=== PATIENT | female | born 1970 | race Caucasian/White ===

== ENCOUNTER 2016-09-09 03:56 | Emergency (ER) | payer MEDICAID ==
[2016-09-09] MEDS ORDERED: SODIUM CHLORIDE 0.9% 1,000 ML IV ONE (04:28)
[2016-09-09] MEDS ORDERED: ONDANSETRON 4 MG/2 ML VIAL IVP STA (04:28)
[2016-09-09] MEDS ORDERED: HYDROmorphone 1 MG/ML SYRINGE IVP STA (04:28)
--- NOTE | 2016-09-09 04:31 | ED Physician Documentation ---
PD HPI ABD PAIN - Stated complaint Stated Complaint: BACK PX,SYNCOPE - Chief complaint Chief Complaint: Back Pain - History obtained from History obtained from: Patient, Family - History of Present Illness Timing - onset: How many days ago (2) Timing - duration: Days (2) Timing - details: Gradual onset, Still present Quality: Sharp, Pain Location: RUQ, Suprapubic Radiation: Left flank, Right flank Improved by: Laying still Worsened by: Position, Palpation Associated symptoms: Nausea, Vomiting Similar symptoms before: Diagnosis (pyelonephritis) Recently seen: Not recently seen - Additional information Additional information: 46 y/o female with a prior history of infected kidney stone has had pain in the right flank and abdomen for the past 2 days. Review of Systems Constitutional: reports: Fever Eyes: denies: Decreased vision Ears: denies: Ear pain Nose: denies: Congestion Throat: denies: Sore throat Cardiac: denies: Chest pain / pressure, Palpitations Respiratory: reports: Cough. denies: Dyspnea GI: reports: Abdominal Pain, Nausea, Vomiting. denies: Constipation, Diarrhea : reports: Vaginal bleeding. denies: Dysuria Skin: denies: Rash Musculoskeletal: reports: Back pain. 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 - Present Medications Home Medications: Ambulatory Orders Medication Instructions Recorded Confirmed Ciprofloxacin HCl [Cipro] 500 mg PO BID #14 tablet 09/09/16 HYDROcod/ACETAM 5/325 [[place] 5/325] 1 - 2 ea PO Q6H PRN #15 tablet 09/09/16 Ondansetron Odt [Zofran] 4 mg TL Q6H PRN #10 tablet 09/09/16 - Allergies Allergies/Adverse Reactions: Allergies Allergy/AdvReac Type Severity Reaction Status Date / Time iodine Allergy Unknown Verified 09/09/16 04:05 promethazine HCl * Allergy Unknown Verified 09/09/16 04:05 [From Phenergan] - Social History Does the pt smoke?: Yes Smoking Status: Current every day smoker Does the pt drink ETOH?: No Does the pt have substance abuse?: No - Immunizations Immunizations are current?: Yes PD ED PE NORMAL - Vitals Vital signs reviewed: Yes (tachypneic) - General General: Well developed/nourished, Other (The patient is moaning in pain and hyperventilating. ) - HEENT HEENT: Atraumatic, PERRL - Neck Neck: Supple, no meningeal sign - Cardiac Cardiac: RRR, No murmur - Respiratory Respiratory: No respiratory distress, Clear bilaterally - Abdomen Abdomen: Soft, Other (mild generalized tenderness without reproducibility or specificity except with bimaual palpation of the right kidney ) - Back Back: No spinal TTP, Other (Right CVA tenderness ) - Derm Derm: Normal color, Warm and dry, No rash - Extremities Extremities: No deformity, No edema - Neuro Neuro: No motor deficit, No sensory deficit - Psych Psych: Normal mood, Normal affect Results - Vitals Vitals: Vital Signs - 24 hr 09/09/16 09/09/16 09/09/16 04:00 05:31 06:09 Temperature 36.0 C L Heart Rate 67 77 74 Respiratory 26 H 16 16 Rate Blood Pressure 119/78 138/69 H 142/77 H O2 Saturation 100 97 100 Oxygen O2 Source Room air - Labs Labs: Laboratory Tests 09/09/16 09/09/16 09/09/16 04:10 05:32 05:32 WBC 10.3 RBC 4.28 Hgb 13.4 Hct 39.4 MCV 92.1 MCH 31.2 H MCHC 33.9 RDW 14.1 Plt Count 224 MPV 8.7 Neut # 7.6 H Lymph # 1.8 [place] # 0.7 Eos # 0.1 Baso # 0.1 Absolute Nucleated RBC 0.00 Nucleated RBCs 0.0 Sodium 139 Potassium 3.9 Chloride 105 Carbon Dioxide 26 Anion Gap 8.0 BUN 13 Creatinine 0.8 Estimated GFR (MDRD) 78 L Glucose 107 H Calcium 8.9 Total Bilirubin 0.4 AST 15 ALT 14 Alkaline Phosphatase 51 Total Protein 6.6 L Albumin 3.7 Globulin 2.9 Albumin/Globulin Ratio 1.3 Lipase 35 Urine Color YELLOW Urine Clarity CLEAR Urine pH 7.5 Ur Specific [place] 1.015 Urine Protein TRACE Urine Glucose (UA) NEGATIVE Urine Ketones NEGATIVE Urine Occult Blood LARGE H Urine Nitrite POSITIVE H Urine Bilirubin NEGATIVE Urine Urobilinogen 0.2 (NORMAL) Ur Leukocyte Esterase NEGATIVE Urine RBC 6-10 H Urine WBC 11-25 H Ur Squamous Epith Cells RARE Squamous Urine Bacteria Many H Ur Microscopic Review INDICATED Urine Culture Comments INDICATED - Rads (name of study) CT abdomen and pelvis without Radiology: Prelim report reviewed (Impression: 1. No ureteral stone or obstructive uropathy seen bilaterally. 2. There two nonobstructing left renal stones measuring up to 4 mm. 3. No evidence of appendicitis. There may be a small normal appendix.), EMP read indepedently, See rad report Procedures - Bedside sono Bedside sono by EMP: with the use of bedside ultrasound both kidneys are imaged without hydro and both are sonographically tender the right much more so than the left. - IVC sono (time) 0420 Bedside IVC sono: IVC measures (cm) (1.02), IVC collapsed c insp (cm) (complete) , Dehydration PD MEDICAL DECISION MAKING - ED course Complexity details: reviewed old records, reviewed results, re-evaluated patient , considered differential, d/w patient, d/w family ED course: 46 y/o female with right flank pain and vaginal bleeding s/p hyster has had a fever and nausea. She arrives to the ED in pain and with nausea and she is miserable and barely able to give history. She is given pain medication and fluids with zofran and she is a different person, able to give adequate history and thankful for feeling better. Her exam is consistent with pyelo and her history is consistent and I felt it important to rule out stone in this case as she has had infected stone with sepsis. She is given rocephin IV and we will place her on cipro give pain medications and anti-emetic. Departure - Departure Disposition: 01 Home, Self Care Clinical Impression: Pyelonephritis Instructions: ED Kidney Infec Female Follow-Up: [facility] [Provider Group] Prescriptions: Ciprofloxacin HCl [Cipro] 500 mg PO BID #14 tablet HYDROcod/ACETAM 5/325 [[place] 5/325] 1 - 2 ea PO Q6H PRN #15 tablet PRN Reason: Pain Ondansetron Odt [Zofran] 4 mg TL Q6H PRN #10 tablet PRN Reason: Nausea / Vomiting Forms: Activity restrictions
[2016-09-09 04:41] LABS: BILIRUBIN,URINE NEGATIVE (NEGATIVE); PH,URINE 7.5 PH (5.0-7.5)
[2016-09-09 04:46] LABS: UA w/ MICROSCOPIC CHARGE YES
[2016-09-09 04:52] LABS: UR CULTURE IF IND INDICATED
[2016-09-09] MEDS ORDERED: cefTRIAXone 1 GM in SODIUM CHLORIDE 0.9% MINIBAG 100 ML IV STA (05:03)
[2016-09-09] MEDS ORDERED: HYDROmorphone 1 MG/ML SYRINGE ONE (05:07)
[2016-09-09] MEDS ORDERED: ONDANSETRON 4 MG/2 ML VIAL ONE (05:07)
[2016-09-09] MEDS ORDERED: cefTRIAXone 1 GM VIAL ONE (05:25)
--- NOTE | 2016-09-09 05:41 | CT Preliminary Report ---
Exam: CT Abdomen/Pelvis W/O IMPRESSION: 1. No ureteral stone or obstructive uropathy seen bilaterally. 2. There are 2 nonobstructing left renal stones measuring up to 4 mm. 3. No evidence of appendicitis. There may be a small normal appendix. [facility] SITE ID: [id number]
--- NOTE | 2016-09-09 05:44 | CT Report ---
EXAM: CT ABDOMEN AND PELVIS (CT KUB) EXAM DATE: 09/09/2016 05:26 AM. CLINICAL HISTORY: Right flank and abdominal pain . COMPARISONS: 01/08/2016. TECHNIQUE: Routine axial helical CT imaging was performed through the abdomen and pelvis without IV c ontrast. Reconstructions: Coronal and sagittal. In accordance with CT protocol optimization, one or more of the following dose reduction techniques w ere utilized for this exam: automated exposure control, adjustment of mA and/or KV based on patient s ize, or use of iterative reconstructive technique. FINDINGS: Lung Bases: Minimal bibasilar atelectasis. Right Kidney/Ureter: No stones, hydronephrosis, or hydroureter. No perinephric fat stranding. Left Kidney/Ureter: There are 2 nonobstructing left renal stones measuring up to [address] one or obstructive uropathy seen. Other Solid Organs: Noncontrast images of the solid organs are grossly unremarkable. Gallbladder/Bile Ducts: Status post cholecystectomy. Peritoneal Cavity: No bowel obstruction seen. No diverticulitis. No free air or free fluid. No lympha denopathy. No definite evidence of appendicitis. There may be a small normal appendix. Pelvic Organs: Uterus is not seen. Visualized pelvic organs are otherwise unremarkable. Vasculature: Mild atherosclerosis. No aortic aneurysm. Other: Implanted stimulator device in the right buttock with wires extending to the sacrum. IMPRESSION: 1. No ureteral stone or obstructive uropathy seen bilaterally. 2. There are 2 nonobstructing left renal stones measuring up to 4 mm. 3. No evidence of appendicitis. There may be a small normal appendix. [facility] Referring Provider Line: [phone] SITE ID: [id number]
[2016-09-09 05:49] LABS: BASOPHILS # (AUTO) 0.1 10^3/uL (0.0-0.1); BASOPHILS % (AUTO) 0.9 %; EOSINOPHILS # (AUTO) 0.1 10^3/uL (0.0-0.7); EOSINOPHILS % (AUTO) 1.2 %; HCT - HEMATOCRIT 39.4 % (37.0-47.0); HGB - HEMOGLOBIN 13.4 g/dL (12.0-16.0); LYMPHOCYTES # (AUTO) 1.8 10^3/uL (1.5-3.5); LYMPHOCYTES % (AUTO) 17.7 %; MEAN CORPUSCULAR HEMOGLOBIN 31.2 pg (27.0-31.0); MEAN CORPUSCULAR HGB CONC 33.9 g/dL (32.0-36.0); MEAN CORPUSCULAR VOLUME 92.1 fL (81.0-99.0); MEAN PLATELET VOLUME 8.7 fL (7.9-10.8); MONOCYTES # (AUTO) 0.7 10^3/uL (0.0-1.0); MONOCYTES % (AUTO) 6.9 %; NEUTROPHILS # (AUTO) 7.6 10^3/uL (1.5-6.6); NEUTROPHILS % (AUTO) 73.3 %; RED BLOOD COUNT 4.28 10^6/uL (4.20-5.40); RED CELL DISTRIBUTION WIDTH 14.1 % (12.0-15.0); UNCORRECTED WHITE BLOOD COUNT 10.3 x10^3/uL; WHITE BLOOD COUNT 10.3 x10^3/uL (4.8-10.8)
[2016-09-09 05:50] LABS: ALBUMIN/GLOBULIN RATIO 1.3 (1.0-2.2); BILIRUBIN,TOTAL 0.4 mg/dL (0.2-1.0); CALCIUM 8.9 mg/dL (8.5-10.3); CREATININE 0.8 mg/dL (0.4-1.0); POTASSIUM 3.9 mmol/L (3.5-5.0); TOTAL PROTEIN 6.6 g/dL (6.7-8.2)
[2016-09-09 07:03] VITALS: BP 133/70
== END 2016-09-09 07:01 | disposition home or self-care (01) ==
LOC: ED 03:56
DX: N12 Tubulo-interstitial nephritis, not specified as acute or chronic (principal); E86.0 Dehydration; R11.2 Nausea with vomiting, unspecified; N93.9 Abnormal uterine and vaginal bleeding, unspecified; Z90.710 Acquired absence of both cervix and uterus; F17.200 Nicotine dependence, unspecified, uncomplicated
CPT/HCPCS: 36415; 74176; 80053; 81001; 83690; 85025; 87077; 87086; 87181; 96361; 96365; 96375; 99284; J1170; 81003; 87040

== ENCOUNTER 2016-09-14 22:57 | Emergency (ER) | payer MEDICAID ==
--- NOTE | 2016-09-14 23:23 | ED Physician Documentation ---
PD HPI ABD PAIN - Stated complaint Stated Complaint: FAINTING - Chief complaint Chief Complaint: General - History obtained from History obtained from: Patient - History of Present Illness Timing - onset: How many days ago (4-5) Timing - duration: Days (4-5 days of back pain, worse with movement, more on the left. Feeling like kidney pain she has had in the past, with infections and stones. Remote history of musculoskeletal back pain with surgery of cysts/ tumors removal and had back stimulator for the pain, but has not worked for 6 years. Has not had that back pain for 6 years. Had some dysuria few days ago. Seen in ED and had positive UA showing UTI. Rx with pain meds and Cipro and did not seem too sick. Patient says somewhat better for a day, then with pain again. She still has one more day of abx.) Timing - details: Gradual onset, Still present, Waxing and waning Quality: Aching, Sharp, Pain Location: LLQ, Other (mostly left flank) Radiation: Left flank, Right flank Improved by: Laying still, Position Worsened by: Moving, Position. No: Breathing, Palpation Associated symptoms: Nausea, Dysuria (improved since on abx.). No: Fever, Vomiting, Diarrhea Similar symptoms before: Diagnosis (kidney stones and pyelonephritis in the past.) Recently seen: Emergency Dept Review of Systems Constitutional: denies: Fever, Chills Nose: denies: Rhinorrhea / runny nose, Congestion Throat: denies: Sore throat Respiratory: denies: Cough GI: reports: Nausea. denies: Vomiting, Diarrhea : reports: Dysuria, Frequency. denies: Discharge Skin: denies: Rash, Lesions Musculoskeletal: reports: Back pain. denies: Neck pain, Extremity swelling Neurologic: reports: Numbness (intermittent when breathing quickly due to pain/ anxious.), Syncope (she says she has had 2 fainting episodes when the pain was hurting. She says she got anxious and felt short of breath, then developed tingling in arms/feet/face, felt sweaty and then fainted. Awoke promptly.). 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 - Present Medications Home Medications: Ambulatory Orders Medication Instructions Recorded Confirmed Ciprofloxacin HCl [Cipro] 500 mg PO BID #14 tablet 09/09/16 09/14/16 HYDROcod/ACETAM 5/325 [[place] 5/325] 1 - 2 ea PO Q6H PRN #15 tablet 09/09/16 Ondansetron Odt [Zofran] 4 mg TL Q6H PRN #10 tablet 09/09/16 09/14/16 Docusate Sodium [Dss] 250 mg PO DAILY #20 capsule 09/15/16 Hydrocodone/Acetaminophen [[place] 1 each PO Q6H PRN #20 tablet 09/15/16 5-325 Tablet] Naproxen 375 mg PO BID #20 tablet 09/15/16 - Allergies Allergies/Adverse Reactions: Allergies Allergy/AdvReac Type Severity Reaction Status Date / Time iodine Allergy Unknown Verified 09/09/16 04:05 promethazine HCl * Allergy Unknown Verified 09/09/16 04:05 [From Phenergan] - Living Situation Living Situation: reports: With spouse/s.o. Living Arrangement: reports: At home - Social History Does the pt smoke?: Yes Smoking Status: Current every day smoker Does the pt drink ETOH?: No Does the pt have substance abuse?: No - Immunizations Immunizations are current?: Yes PD ED PE NORMAL - Vitals Vital signs reviewed: Yes - General General: Alert and oriented X 3, Well developed/nourished, Other (seems in pain and is breathing quick/shallow, feeling some tingling in hands on initial exam. ) - HEENT HEENT: Atraumatic, PERRL, Pharynx benign - Neck Neck: Supple, no meningeal sign, No adenopathy - Cardiac Cardiac: RRR, No murmur - Respiratory Respiratory: Clear bilaterally - Abdomen Abdomen: Normal bowel sounds, Soft, Non tender, Non distended - Female Female : Deferred - Rectal Rectal: Deferred - Back Back: No spinal TTP, Other (muscular tenderness in upper lumbar area, No rash nor sores. ) - Derm Derm: Normal color, No rash - Extremities Extremities: Normal ROM s pain, No edema, No calf tenderness / cord - Neuro Neuro: Alert and oriented X 3, No motor deficit, Normal speech - Psych Psych: No: Normal affect (anxious, seems in pain) Results - Vitals Vitals: Vital Signs - 24 hr 09/14/16 09/15/16 09/15/16 23:03 00:31 01:32 Temperature 36.7 C 36.1 C L Heart Rate 103 H 77 99 Respiratory 20 18 15 Rate Blood Pressure 173/104 H 125/63 148/84 H O2 Saturation 100 96 99 09/15/16 09/15/16 02:09 02:17 Temperature 36.5 C Heart Rate 84 82 Respiratory 16 18 Rate Blood Pressure 140/82 H 140/92 H O2 Saturation 98 98 Oxygen O2 Source Room air - Labs Labs: Laboratory Tests 09/14/16 09/14/16 09/14/16 00:10 00:10 00:10 WBC 9.3 RBC 4.30 Hgb 13.3 Hct 39.6 MCV 92.0 MCH 30.9 MCHC 33.6 RDW 14.5 Plt Count 257 MPV 8.8 Neut # 5.6 Lymph # 2.7 [place] # 0.6 Eos # 0.2 Baso # 0.2 H Absolute Nucleated RBC 0.00 Nucleated RBCs 0.0 Sodium 139 Potassium 3.4 L Chloride 106 Carbon Dioxide 26 Anion Gap 7.0 BUN 12 Creatinine 0.8 Estimated GFR (MDRD) 78 L Glucose 126 H Lactic Acid 1.1 Calcium 9.2 Total Bilirubin 0.3 AST 19 ALT 17 Alkaline Phosphatase 66 Total Protein 6.7 Albumin 3.7 Globulin 3.0 Albumin/Globulin Ratio 1.2 Lipase 40 Urine Color Urine Clarity Urine pH Ur Specific [place] Urine Protein Urine Glucose (UA) Urine Ketones Urine Occult Blood Urine Nitrite Urine Bilirubin Urine Urobilinogen Ur Leukocyte Esterase Ur Microscopic Review Urine Culture Comments 09/14/16 23:55 WBC RBC Hgb Hct MCV MCH MCHC RDW Plt Count MPV Neut # Lymph # [place] # Eos # Baso # Absolute Nucleated RBC Nucleated RBCs Sodium Potassium Chloride Carbon Dioxide Anion Gap BUN Creatinine Estimated GFR (MDRD) Glucose Lactic Acid Calcium Total Bilirubin AST ALT Alkaline Phosphatase Total Protein Albumin Globulin Albumin/Globulin Ratio Lipase Urine Color YELLOW Urine Clarity CLEAR Urine pH 7.0 Ur Specific [place] 1.015 Urine Protein NEGATIVE Urine Glucose (UA) NEGATIVE Urine Ketones NEGATIVE Urine Occult Blood NEGATIVE Urine Nitrite NEGATIVE Urine Bilirubin NEGATIVE Urine Urobilinogen 0.2 (NORMAL) Ur Leukocyte Esterase NEGATIVE Ur Microscopic Review NOT INDICATED Urine Culture Comments NOT INDICATED - Rads (name of study) KUB CT Radiology: Prelim report reviewed (no stones, no signs of kidney swelling. Moderate to large amount of stool. ) PD MEDICAL DECISION MAKING - ED course Complexity details: reviewed results (no stones nor UTI at this point. So back pain is from other cause, presume musculoskeletal as it is positional/movement enhanced. ), considered differential (CT is good without stones nor other acute process. She has pain in back with ROM so presume muscular. She has hyperventilation with the pain and I think her fainting episode was due to that. Blood tests are good.), d/w patient Departure - Departure Disposition: Home, Self Care Clinical Impression: Flank pain, acute Syncopal episodes Qualifiers: Syncope type: unspecified Qualified Code(s): R55 - Syncope and collapse Clinical Impression: (Ruled Out): Renal colic Condition: Stable Record reviewed to determine appropriate education?: Yes Instructions: ED Flank Pain Uncertain Cause Prescriptions: Docusate Sodium [Dss] 250 mg PO DAILY #20 capsule Naproxen 375 mg PO BID #20 tablet Hydrocodone/Acetaminophen [[place] 5-325 Tablet] 1 each PO Q6H PRN #20 tablet PRN Reason: Pain Comments: Drink lots of fluids. Your urine is looking clear and your infection markers are good (white count, temp, lactic acid) so the infection looks like it is clearing. No stones on the CT, nor other acute cause for the pain. Presume then the back pain may be more musculoskeletal. Naproxen twice daily and add Tylenol or hydrocodone for pain as needed. Daily stool softener for a week or so. Finish your antibiotic course at home. I think the fainting episodes you had may be caused by breathing too fast when the pain was worse, causing hyperventilation, which will give the numbness in arms/legs and can lead to fainting. Treating the back pain presume would keep those from happening. Follow up with your PMD in a few days, call for an appt. Return if worsening or other concerns. Discharge Date/Time: 09/15/16 02:17
[2016-09-14] MEDS ORDERED: ONDANSETRON 4 MG/2 ML VIAL IVP STA (23:47)
[2016-09-14] MEDS ORDERED: SODIUM CHLORIDE 0.9% 1,000 ML IV ONE (23:47)
[2016-09-14] MEDS ORDERED: KETOROLAC 60 MG/2 ML VIAL IVP STA (23:47)
[2016-09-14] MEDS ORDERED: HYDROmorphone 1 MG/ML SYRINGE IVP STA (23:47)
[2016-09-14] MEDS ORDERED: KETOROLAC 30 MG/ML VIAL ONE (23:56)
[2016-09-14] MEDS ORDERED: ONDANSETRON 4 MG/2 ML VIAL ONE (23:57)
[2016-09-14] MEDS ORDERED: HYDROmorphone 1 MG/ML SYRINGE ONE (23:57)
[2016-09-15 00:06] LABS: BILIRUBIN,URINE NEGATIVE (NEGATIVE)
[2016-09-15 00:08] LABS: UA CHARGE (STRIP ONLY) YES; UR CULTURE IF IND NOT INDICATED
[2016-09-15 00:21] LABS: BASOPHILS # (AUTO) 0.2 10^3/uL (0.0-0.1); BASOPHILS % (AUTO) 1.9 %; EOSINOPHILS # (AUTO) 0.2 10^3/uL (0.0-0.7); EOSINOPHILS % (AUTO) 2.2 %; HCT - HEMATOCRIT 39.6 % (37.0-47.0); HGB - HEMOGLOBIN 13.3 g/dL (12.0-16.0); LYMPHOCYTES # (AUTO) 2.7 10^3/uL (1.5-3.5); LYMPHOCYTES % (AUTO) 29.2 %; MEAN CORPUSCULAR HEMOGLOBIN 30.9 pg (27.0-31.0); MEAN CORPUSCULAR HGB CONC 33.6 g/dL (32.0-36.0); MEAN PLATELET VOLUME 8.8 fL (7.9-10.8); MONOCYTES # (AUTO) 0.6 10^3/uL (0.0-1.0); MONOCYTES % (AUTO) 6.3 %; NEUTROPHILS # (AUTO) 5.6 10^3/uL (1.5-6.6); NEUTROPHILS % (AUTO) 60.4 %; RED CELL DISTRIBUTION WIDTH 14.5 % (12.0-15.0); UNCORRECTED WHITE BLOOD COUNT 9.3 x10^3/uL; WHITE BLOOD COUNT 9.3 x10^3/uL (4.8-10.8)
[2016-09-15 00:32] LABS: ALBUMIN/GLOBULIN RATIO 1.2 (1.0-2.2); BILIRUBIN,TOTAL 0.3 mg/dL (0.2-1.0); CALCIUM 9.2 mg/dL (8.5-10.3); CREATININE 0.8 mg/dL (0.4-1.0); POTASSIUM 3.4 mmol/L (3.5-5.0); TOTAL PROTEIN 6.7 g/dL (6.7-8.2)
--- NOTE | 2016-09-15 01:25 | CT Preliminary Report ---
Exam: CT KUB IMPRESSION: 1. Again seen are one or 2 small nonobstructing stones in the left kidney. No other urolithiasis iden tified. 2. Moderate to large amount of stool in the colon and rectum. 3. No other acute abnormalities seen. [facility] SITE ID: [id number]
--- NOTE | 2016-09-15 01:28 | CT Report ---
EXAM: CT ABDOMEN AND PELVIS (CT KUB) EXAM DATE: 09/15/2016 01:04 AM. CLINICAL HISTORY: Abdominal pain and right flank pain. Vaginal bleeding. COMPARISONS: 09/09/2016. TECHNIQUE: Routine axial helical CT imaging was performed through the abdomen and pelvis without IV c ontrast. Reconstructions: Coronal and sagittal. In accordance with CT protocol optimization, one or more of the following dose reduction techniques w ere utilized for this exam: automated exposure control, adjustment of mA and/or KV based on patient s ize, or use of iterative reconstructive technique. FINDINGS: Lung Bases: Mild bibasilar atelectasis. Right Kidney/Ureter: No stones, hydronephrosis, or hydroureter. No perinephric fat stranding. Left Kidney/Ureter: There are one or 2 small nonobstructing stones in the kidney. No ureteral stone o r obstructive uropathy is seen. Other Solid Organs: Noncontrast images of the solid organs are grossly unremarkable. Gallbladder/Bile Ducts: Status post cholecystectomy. Peritoneal Cavity: Moderate to large amount of stool in the colon and rectum. No diverticulitis seen. No bowel obstruction. No free air or free fluid. No lymphadenopathy. Appendix is not well seen. No e vidence of appendicitis. Pelvic Organs: Uterus is not seen. Visualized pelvic organs are otherwise unremarkable. Vasculature: Mild atherosclerosis. No aortic aneurysm. Other: Implanted stimulator device is unchanged. IMPRESSION: 1. Again seen are one or 2 small nonobstructing stones in the left kidney. No other urolithiasis iden tified. 2. Moderate to large amount of stool in the colon and rectum. 3. No other acute abnormalities seen. [facility] Referring Provider Line: [phone] SITE ID: [id number]
[2016-09-15] MEDS ORDERED: DOCUSATE SODIUM 100 MG CAPSULE PO STA (01:50)
[2016-09-15] MEDS ORDERED: HYDROmorphone 1 MG/ML SYRINGE IVP STA (01:50)
[2016-09-15] MEDS ORDERED: HYDROmorphone 1 MG/ML SYRINGE ONE (01:56)
[2016-09-15] MEDS ORDERED: DOCUSATE SODIUM 100 MG CAPSULE PO ONE (01:57)
[2016-09-15 02:20] VITALS: BP 140/92
== END 2016-09-15 02:17 | disposition home or self-care (01) ==
LOC: ED 22:57
DX: R55 Syncope and collapse (principal); R10.30 Lower abdominal pain, unspecified; Z87.442 Personal history of urinary calculi; F17.200 Nicotine dependence, unspecified, uncomplicated
CPT/HCPCS: 36415; 74176; 80053; 81003; 83605; 83690; 85025; 96361; 96365; 96375; 96376; 99284; A9270; J1170; 81001; 87086

== ENCOUNTER 2016-11-05 10:12 | Emergency (ER) | payer MEDICAID ==
[2016-11-05 10:25] VITALS: BP 159/99
== END 2016-11-05 10:46 | disposition left against medical advice (07) ==
LOC: ED 10:12
DX: Z53.21 Procedure and treatment not carried out due to patient leaving prior to being seen by health care provider (principal); M54.9 Dorsalgia, unspecified
CPT/HCPCS: 99281

== ENCOUNTER 2017-12-11 11:09 | Emergency (ER) | payer MEDICAID ==
--- NOTE | 2017-12-11 12:12 | ED Physician Documentation ---
PD HPI BACK PAIN - Stated complaint Stated Complaint: LOWER BK PX - Chief complaint Chief Complaint: Back Pain - History obtained from History obtained from: Patient, Family - History of Present Illness Timing - onset: Chronic Timing - duration: Days (worsre for past 4-5 days) Pain level max: 10 Pain level now: 10 Location: Lower, Right, Left Quality: Pain, Spasm, Aching Associated symptoms: No: Fever, Weakness, Numbness, Incontinent of urine, Unable to urinate, Hematuria, Incontinent of stool Improves with: Rest Worsened by: Movement, Twisting, Palpation Contributing factors: Other (states slipped and nearly fell). No: Cancer, IVDA Similar symptoms before: Diagnosis (chronic back pain) Recently seen: Not recently seen - Additional information Additional information: Patient is a 47 year old female who presents to the emergency department with c/o severe back pain. Patient's boyfriend states that she fell and hurt her back 4 days ago and they believe her neurostimulator leads are broken. States that she has used diazepam and naproxen and had no relief. Boyfriend states that her stimulator has not been working for the past year. Denies any stool or incontinence. Review of Systems Constitutional: denies: Fever, Chills, Fatigue Eyes: denies: Loss of vision, Decreased vision, Photophobia Ears: denies: Ear pain Nose: denies: Rhinorrhea / runny nose, Congestion, Sinus pressure / pain Throat: denies: Sore throat Cardiac: denies: Chest pain / pressure Respiratory: denies: Cough GI: denies: Abdominal Pain, Nausea, Vomiting, Constipation, Diarrhea : denies: Frequency, Unable to Void, Incontinent Skin: denies: Rash Musculoskeletal: reports: Back pain. 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 - Present Medications Home Medications: Ambulatory Orders Medication Instructions Recorded Confirmed Cyclobenzaprine [Flexeril] 10 mg PO TID PRN #20 tablet 12/11/17 Meloxicam [Mobic] 15 mg PO DAILY PRN #20 tablet 12/11/17 Oxycodone HCl/Acetaminophen 1 - 2 each PO Q6H PRN #14 tablet 12/11/17 [Percocet 5-325 mg Tablet] diazePAM [Valium] 5 - 10 mg PO TID PRN 12/11/17 12/11/17 - Allergies Allergies/Adverse Reactions: Allergies Allergy/AdvReac Type Severity Reaction Status Date / Time iodine Allergy Unknown Verified 12/11/17 11:18 promethazine HCl * Allergy Unknown Verified 12/11/17 11:18 [From Phenergan] Sulfa (Sulfonamide Allergy Unknown Verified 12/11/17 11:18 Antibiotics) - Social History Does the pt smoke?: Yes Smoking Status: Current every day smoker Does the pt drink ETOH?: No Does the pt have substance abuse?: No - Immunizations Immunizations are current?: Yes PD ED PE NORMAL - Vitals Vital signs reviewed: Yes - General General: Alert and oriented X 3, Well developed/nourished - HEENT HEENT: Atraumatic, Moist mucous membranes - Neck Neck: Supple, no meningeal sign - Cardiac Cardiac: RRR, Strong equal pulses - Respiratory Respiratory: No respiratory distress, Clear bilaterally - Abdomen Abdomen: Soft, Non tender, Non distended - Back Back: Other (Well healed surgical scars vertically along L-spine and horizontally on L lower back. Significantly TTP ) - Derm Derm: Warm and dry - Extremities Extremities: Other (normal bilateral lower extremity patellar and ankle jerk reflexes. Normal great toe extension bilaterally. no saddle anesthesia) - Neuro Neuro: Alert and oriented X 3 - Psych Psych: Normal mood, Normal affect Results - Vitals Vitals: Vital Signs - 24 hr 12/11/17 12/11/17 11:15 13:31 Temperature 36.8 C Heart Rate 99 72 Respiratory 22 17 Rate Blood Pressure 155/111 H 153/94 H O2 Saturation 99 97 Oxygen O2 Source Room air - Rads (name of study) L spine xray Radiology: Prelim report reviewed, EMP read contemporaneously, See rad report (Normal lumbar spine alignment without fracture or dislocation. Unchanged position of the neurostimulator leads on the frontal view, however, mild superior projection of the lead on the lateral view is seen which may be projectional. ) PD MEDICAL DECISION MAKING - ED course Complexity details: reviewed results, re-evaluated patient, considered differential (no cauda equina, no spinal epidural abscess, no fracture, no aortic dissection or evidence of aneursym rupture), d/w patient, d/w family ED course: Patient is a 47-year-old female who presents to the emergency department with chronic low back pain. She has an acute exacerbation of this and pain improved with Dilaudid, Toradol and morphine. Will place her on muscle relaxants and pain medication for home. No cauda equina or epidural abscess. No fractures. Unchanged position of the neurostimulator leads. We will continue medications at home and follow-up closely with her doctor. Patient counseled regarding signs and symptoms for which I believe and urgent re-evaluation would be necessary. Patient with good understanding of and agreement to plan and is comfortable going home at this time This document was made in part using voice recognition software. While efforts are made to proofread this document, sound alike and grammatical errors may occur. - Sepsis Event Vital Signs: Vital Signs - 24 hr 12/11/17 12/11/17 11:15 13:31 Temperature 36.8 C Heart Rate 99 72 Respiratory 22 17 Rate Blood Pressure 155/111 H 153/94 H O2 Saturation 99 97 Oxygen O2 Source Room air Departure - Departure Disposition: 01 Home, Self Care Clinical Impression: Strain of back muscle Condition: Good Instructions: ED Low Back Pain Injury Follow-Up: Valeria Colbert MD [Provider Admit Priv/Credential] - [facility] [Provider Group] [facility] [Provider Group] [facility] [Provider Group] Prescriptions: Cyclobenzaprine [Flexeril] 10 mg PO TID PRN #20 tablet PRN Reason: Spasms Meloxicam [Mobic] 15 mg PO DAILY PRN #20 tablet PRN Reason: pain Oxycodone HCl/Acetaminophen [Percocet 5-325 mg Tablet] 1 - 2 each PO Q6H PRN #14 tablet PRN Reason: pain Comments: Return if you worsen. Take the medications as prescribed. This should improve over the next few days. Follow-up with a primary care doctor for further care of your back. Do not drink alcohol or drive while on narcotic pain medicine. Note that many narcotic pain relievers also contain tylenol/acetaminophen. Please ensure that your total dose of acetaminophen from all sources does not exceed 3 grams (3000mg) per day. You may constipated on this medication, take a stool softener such as "Colace" twice a day while you are on it. Also recommend a zxdn-rpp-edzdnqa laxative such as senna or MiraLAX any day that you do not have a bowel movement. If you received narcotic pain medication in the emergency department, do not drive or operate machinery for the next 24 hours. Discharge Date/Time: 12/11/17 13:36
[2017-12-11] MEDS ORDERED: HYDROmorphone 1 MG/ML CARPUJECT IM STA (12:22)
[2017-12-11] MEDS ORDERED: KETOROLAC 60 MG/2 ML VIAL IM STA (12:22)
[2017-12-11] MEDS: CYCLOBENZAPRINE 10 MG TABLET PO STA ×2 (12:32→13:07)
--- NOTE | 2017-12-11 13:04 | XRAY Report ---
Reason: low back pain, concerned about stimulator wires Procedure Date: 12/11/2017 Accession Number: [id number] / [id number] Procedure: XR - Lumbar Spine 2 View CPT Code: FULL RESULT: EXAM: LUMBOSACRAL SPINE RADIOGRAPHY EXAM DATE: 12/11/2017 12:45 PM. CLINICAL HISTORY: Low back pain, concerned about stimulator wires. COMPARISONS: 10/08/2013. TECHNIQUE: 2 views. FINDINGS: Alignment: Normal. No spondylolisthesis or scoliosis. Bones: Five ecw-gvz-snhrfeh lumbar vertebral bodies are present. No fractures or bone lesions. Disks: Normal. Disk heights are maintained. Facets: No degenerative changes. Sacroiliac Joints: Unremarkable. Soft Tissues: Unchanged position of the neurostimulator leads on the frontal view, however, on the lateral view, the neurostimulator lead projects superior to the other which may be projectional. IMPRESSION: 1. Normal lumbar spine alignment without fracture or dislocation. 2. Unchanged position of the neurostimulator leads on the frontal view, however, mild superior projection of the lead on the lateral view is seen which may be projectional. RADIA
[2017-12-11] MEDS ORDERED: MORPHINE 10 MG/ML VIAL IM STA (13:10)
[2017-12-11 13:32] VITALS: BP 153/94
== END 2017-12-11 13:36 | disposition home or self-care (01) ==
LOC: ED 11:09
DX: S39.012A Strain of muscle, fascia and tendon of lower back, initial encounter (principal); W19.XXXA Unspecified fall, initial encounter; Z96.89 Presence of other specified functional implants; F17.200 Nicotine dependence, unspecified, uncomplicated
CPT/HCPCS: 72100; 96372; 99283; J1170

== ENCOUNTER 2019-03-27 13:44 | Emergency (ER) | payer SELFPAY ==
[2019-03-27 14:03] VITALS: BP 149/101
== END 2019-03-27 15:04 | disposition left against medical advice (07) ==
LOC: ED 13:44
DX: Z53.21 Procedure and treatment not carried out due to patient leaving prior to being seen by health care provider (principal)

== ENCOUNTER 2019-03-27 20:17 | Emergency (ER) | payer SELFPAY ==
[2019-03-27 21:04] LABS: BILIRUBIN,URINE NEGATIVE (NEGATIVE); GLUCOSE, URINE (UA) NEGATIVE (NEGATIVE); KETONES,URINE (UA) NEGATIVE (NEGATIVE); LEUKOCYTE ESTERASE, URINE NEGATIVE (NEGATIVE); NITRITE,URINE NEGATIVE (NEGATIVE); OCCULT BLOOD,URINE NEGATIVE (NEGATIVE); PH,URINE 8.5 PH (5.0-7.5); PROTEIN,URINE NEGATIVE (NEGATIVE); UROBILINOGEN,URINE 1 (NORMAL) E.U./dL (NORMAL)
[2019-03-27 21:06] LABS: CLARITY,URINE CLEAR (CLEAR); HCG UR QUAL NEGATIVE
[2019-03-27] MEDS ORDERED: SODIUM CHLORIDE 0.9% 1,000 ML IV ONE (21:28)
--- NOTE | 2019-03-27 21:32 | ED Physician Documentation ---
History of Present Illness - Stated complaint Stated Complaint: FEVER/BACK PX - Chief complaint Chief Complaint: General - History obtained from History obtained from: Patient, Family - History of Present Illness Timing: How many weeks ago (2) - Additonal information Additional information: 49 y/o female with 2 months of lower back pain and intermittent fever. She has a history of back pain and has had a neuro-stimulator placed that is now broken. She has not used it in more than 2 years. She has developed severe low back pain and is having trouble moving around. Review of Systems Constitutional: reports: Fever, Chills, Myalgias, Fatigue Eyes: denies: Decreased vision Ears: denies: Ear pain Nose: denies: Rhinorrhea / runny nose, Congestion Throat: denies: Sore throat Cardiac: denies: Chest pain / pressure, Palpitations, Pedal edema, Calf pain Respiratory: reports: Cough. denies: Dyspnea, Wheezing GI: reports: Abdominal Pain, Nausea. denies: Vomiting, Constipation, Diarrhea : reports: Dysuria, Frequency Skin: denies: Rash Musculoskeletal: reports: Back pain. denies: Neck pain, Extremity pain Neurologic: reports: Generalized weakness. 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 - Present Medications Home Medications: Ambulatory Orders Medication Instructions Recorded Confirmed Cyclobenzaprine [Flexeril] 10 mg PO TID PRN #20 tablet 12/11/17 Meloxicam [Mobic] 15 mg PO DAILY PRN #20 tablet 12/11/17 Oxycodone HCl/Acetaminophen 1 - 2 each PO Q6H PRN #14 tablet 12/11/17 [Percocet 5-325 mg Tablet] diazePAM [Valium] 5 - 10 mg PO TID PRN 12/11/17 12/11/17 Hydrocodone/Acetaminophen 1 - 2 each PO Q6H PRN #14 tablet 03/28/19 [Hydrocodon-Acetaminophen 5-325] Methocarbamol [Robaxin-750] 750 mg PO Q6HR PRN #20 tablet 03/28/19 - Allergies Allergies/Adverse Reactions: Allergies Allergy/AdvReac Type Severity Reaction Status Date / Time cyclobenzaprine Allergy Respiratory Verified 03/28/19 03:02 [From Flexeril] iodine Allergy Unknown Verified 03/27/19 13:58 promethazine HCl * Allergy Unknown Verified 03/27/19 13:58 [From Phenergan] Sulfa (Sulfonamide Allergy Unknown Verified 03/27/19 13:58 Antibiotics) - Social History Does the pt smoke?: Yes Smoking Status: Current every day smoker Does the pt drink ETOH?: No Does the pt have substance abuse?: No - Immunizations Immunizations are current?: Yes PD ED PE NORMAL - Vitals Vital signs reviewed: Yes (tachy and hypertensive) - General General: Well developed/nourished, Other (withdrawn and short in responses) - HEENT HEENT: Atraumatic, PERRL, EOMI, Ears normal, Other (parched mucous membranes) - Neck Neck: Supple, no meningeal sign, No bony TTP - Cardiac Cardiac: No murmur, Other (tachy ) - Respiratory Respiratory: No respiratory distress, Clear bilaterally - Abdomen Abdomen: Normal bowel sounds, Soft, Non tender, Non distended, No organomegaly - Back Back: No CVA TTP, Other (There is a well healed right lower lumbar scar from placement of the neuro-stimulator. 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, No motor deficit, No sensory deficit, Normal speech Eye Opening: Spontaneous Motor: Obeys Commands Verbal: Oriented GCS Score: 15 - Psych Psych: Normal mood, Normal affect Results - Vitals Vitals: Vital Signs - 24 hr 03/27/19 03/28/19 03/28/19 20:22 02:07 02:50 Temperature 37.1 C 37 C Heart Rate 106 H 84 87 Respiratory 20 18 18 Rate Blood Pressure 171/108 H 167/98 H 164/95 H O2 Saturation 99 96 98 Oxygen O2 Source Room air - Labs Labs: Laboratory Tests 03/27/19 03/27/19 03/27/19 20:55 21:41 21:41 WBC 11.9 H RBC 4.06 L Hgb 12.5 Hct 37.2 MCV 91.6 MCH 30.8 MCHC 33.6 RDW 13.3 Plt Count 284 MPV 10.5 Neut # (Auto) 8.7 H Lymph # (Auto) 2.1 [place] # (Auto) 0.9 Eos # (Auto) 0.1 Baso # (Auto) 0.1 Absolute Nucleated RBC 0.00 Nucleated RBC % 0.0 Sodium 139 Potassium 3.1 L Chloride 107 Carbon Dioxide 25 Anion Gap 7.0 BUN 13 Creatinine 0.8 Estimated GFR (MDRD) 77 L Glucose 115 H Lactic Acid Calcium 9.2 Total Bilirubin 0.5 AST 14 ALT 14 Alkaline Phosphatase 54 Total Protein 6.1 L Albumin 3.5 Globulin 2.6 Albumin/Globulin Ratio 1.3 Lipase 42 Urine Color YELLOW Urine Clarity CLEAR Urine pH 8.5 H Ur Specific [place] 1.015 Urine Protein NEGATIVE Urine Glucose (UA) NEGATIVE Urine Ketones NEGATIVE Urine Occult Blood NEGATIVE Urine Nitrite NEGATIVE Urine Bilirubin NEGATIVE Urine Urobilinogen 1 (NORMAL) Ur Leukocyte Esterase NEGATIVE Ur Microscopic Review NOT INDICATED Urine Culture Comments NOT INDICATED Urine HCG, Qual NEGATIVE 03/27/19 21:41 WBC RBC Hgb Hct MCV MCH MCHC RDW Plt Count MPV Neut # (Auto) Lymph # (Auto) [place] # (Auto) Eos # (Auto) Baso # (Auto) Absolute Nucleated RBC Nucleated RBC % Sodium Potassium Chloride Carbon Dioxide Anion Gap BUN Creatinine Estimated GFR (MDRD) Glucose Lactic Acid 1.2 Calcium Total Bilirubin AST ALT Alkaline Phosphatase Total Protein Albumin Globulin Albumin/Globulin Ratio Lipase Urine Color Urine Clarity Urine pH Ur Specific [place] Urine Protein Urine Glucose (UA) Urine Ketones Urine Occult Blood Urine Nitrite Urine Bilirubin Urine Urobilinogen Ur Leukocyte Esterase Ur Microscopic Review Urine Culture Comments Urine HCG, Qual - Rads (name of study) chest Radiology: Prelim report reviewed (Impression: No focal consolidation.), EMP read indepedently, See rad report Procedures - IVC sono (time) 2119 Bedside IVC sono: IVC measures (cm) (0.80), IVC collapsed c insp (cm) (complete), Dehydration (est >2 liters deficit) PD MEDICAL DECISION MAKING - ED course Complexity details: reviewed old records, reviewed results, re-evaluated patient, considered differential, d/w patient ED course: 49 y /o female with severe back pain is afebrile here and has normal appearing urine and is found to be dehydrated. She is given IV saline, decadron and tordal and requires diluadid for pain control. She does not have UTI. She eventually is much improved with the hydration. Departure - Departure Disposition: 01 Home, Self Care Clinical Impression: Hypokalemia, Dehydration, Lumbar pain Condition: Stable Instructions: ED Spasm Back No Trauma, ED Dehydration, ED Potassium Deficiency, ED Diet High Potassium Follow-Up: [facility] [Provider Group] Prescriptions: Methocarbamol [Robaxin-750] 750 mg PO Q6HR PRN #20 tablet PRN Reason: back spasm Hydrocodone/Acetaminophen [Hydrocodon-Acetaminophen 5-325] 1 - 2 each PO Q6H PRN #14 tablet PRN Reason: pain Discharge Date/Time: 03/28/19 03:13
[2019-03-27 21:44] LABS: BASOPHILS # (AUTO) 0.1 10^3/uL (0.0-0.1); BASOPHILS % (AUTO) 0.5 %; EOSINOPHILS # (AUTO) 0.1 10^3/uL (0.0-0.7); EOSINOPHILS % (AUTO) 0.5 %; HGB - HEMOGLOBIN 12.5 g/dL (12.0-16.0); LYMPHOCYTES # (AUTO) 2.1 10^3/uL (1.5-3.5); LYMPHOCYTES % (AUTO) 17.4 %; MEAN CORPUSCULAR HEMOGLOBIN 30.8 pg (27.0-31.0); MEAN CORPUSCULAR HGB CONC 33.6 g/dL (32.0-36.0); MEAN CORPUSCULAR VOLUME 91.6 fL (81.0-99.0); MEAN PLATELET VOLUME 10.5 fL (7.9-10.8); MONOCYTES # (AUTO) 0.9 10^3/uL (0.0-1.0); MONOCYTES % (AUTO) 7.9 %; NEUTROPHILS # (AUTO) 8.7 10^3/uL (1.5-6.6); NEUTROPHILS % (AUTO) 73.2 %; PLT - PLATELET COUNT 284 10^3/uL (130-450); RED BLOOD COUNT 4.06 10^6/uL (4.20-5.40); RED CELL DISTRIBUTION WIDTH 13.3 % (12.0-15.0); WHITE BLOOD COUNT 11.9 x10^3/uL (4.8-10.8)
[2019-03-27 21:58] LABS: ALBUMIN 3.5 g/dL (3.2-5.5); ALBUMIN/GLOBULIN RATIO 1.3 (1.0-2.2); BILIRUBIN,TOTAL 0.5 mg/dL (0.2-1.0); CALCIUM 9.2 mg/dL (8.5-10.3); CREATININE 0.8 mg/dL (0.4-1.0); TOTAL PROTEIN 6.1 g/dL (6.7-8.2)
[2019-03-27] MEDS ORDERED: KETOROLAC 30 MG/ML VIAL IVP STA (22:09)
[2019-03-27] MEDS ORDERED: DEXAMETHASONE 10 MG/ML VIAL IVP STA (22:09)
[2019-03-27] MEDS ORDERED: KETOROLAC 60 MG/2 ML VIAL IM STA (22:45)
[2019-03-27] MEDS ORDERED: CHERRY SYRUP 10 ML UDC PO ONE (22:45)
[2019-03-27] MEDS ORDERED: DEXAMETHASONE 10 MG/ML VIAL PO STA (22:45)
--- NOTE | 2019-03-27 23:05 | XRAY Report ---
Reason: fever Procedure Date: 03/27/2019 Accession Number: [id number] / [id number] Procedure: XR - Chest 1 View X-Ray CPT Code: 99514 Final Report FULL RESULT: EXAM: CHEST RADIOGRAPHY EXAM DATE: 03/27/2019 10:43 PM. CLINICAL HISTORY: Fever. COMPARISON: None. TECHNIQUE: 1 view. FINDINGS: Lungs/Pleura: No focal opacities evident. No pleural effusion. No pneumothorax. Mediastinum: Within exam limitations, the cardiomediastinal contour is normal. Other: Right upper quadrant postcholecystectomy clips. IMPRESSION: No focal consolidation. RADIA
--- NOTE | 2019-03-27 23:55 | ED Physician Documentation ---
ED Addendum - Addendum Addendum: 03/27/19 23:54 She was difficult for IV access, RN tried and failed. Asked by Dr Sanders to place PIV. I personally placed 20g long IV in R deep brachial vein after chloraprep using real time U/S guidance. Otherwise I was not involved in care or MDM.
[2019-03-28] MEDS ORDERED: SODIUM CHLORIDE 0.9% 1,000 ML IV ONE (00:44)
[2019-03-28] MEDS ORDERED: ONDANSETRON 4 MG/2 ML VIAL IVP STA (01:54)
[2019-03-28] MEDS ORDERED: HYDROmorphone 1 MG/ML CARPUJECT IVP STA (01:54)
[2019-03-28 02:51] VITALS: BP 164/95
== END 2019-03-28 03:13 | disposition home or self-care (01) ==
LOC: ED 20:17
DX: E86.0 Dehydration (principal); E87.6 Hypokalemia; M54.5 Low back pain; G89.29 Other chronic pain; F17.200 Nicotine dependence, unspecified, uncomplicated
CPT/HCPCS: 36415; 71045; 80053; 81003; 81025; 83605; 83690; 85025; 96361; 96372; 96374; 99284; A9270; J1170; 81001; 87086

== ENCOUNTER 2019-03-28 20:01 | Emergency (ER) | payer MEDICAID ==
[2019-03-28] MEDS ORDERED: KETOROLAC 30 MG/ML VIAL IVP STA (20:58)
[2019-03-28] MEDS ORDERED: SODIUM CHLORIDE 0.9% 1,000 ML IV ONE (20:58)
[2019-03-28 21:43] LABS: BASOPHILS # (AUTO) 0.1 10^3/uL (0.0-0.1); BASOPHILS % (AUTO) 0.4 %; EOSINOPHILS % (AUTO) 0.2 %; HGB - HEMOGLOBIN 11.7 g/dL (12.0-16.0); LYMPHOCYTES # (AUTO) 2.6 10^3/uL (1.5-3.5); LYMPHOCYTES % (AUTO) 17.7 %; MEAN CORPUSCULAR HEMOGLOBIN 30.8 pg (27.0-31.0); MEAN CORPUSCULAR VOLUME 93.4 fL (81.0-99.0); MEAN PLATELET VOLUME 11.4 fL (7.9-10.8); MONOCYTES % (AUTO) 6.7 %; NEUTROPHILS # (AUTO) 10.9 10^3/uL (1.5-6.6); NEUTROPHILS % (AUTO) 74.5 %; PLT - PLATELET COUNT 234 10^3/uL (130-450); RED CELL DISTRIBUTION WIDTH 14.1 % (12.0-15.0); WHITE BLOOD COUNT 14.7 x10^3/uL (4.8-10.8)
[2019-03-28 21:48] LABS: BILIRUBIN,URINE NEGATIVE (NEGATIVE); CLARITY,URINE CLEAR (CLEAR); GLUCOSE, URINE (UA) NEGATIVE (NEGATIVE); KETONES,URINE (UA) NEGATIVE (NEGATIVE); LEUKOCYTE ESTERASE, URINE NEGATIVE (NEGATIVE); NITRITE,URINE NEGATIVE (NEGATIVE); OCCULT BLOOD,URINE NEGATIVE (NEGATIVE); PROTEIN,URINE NEGATIVE (NEGATIVE); UROBILINOGEN,URINE 0.2 (NORMAL) E.U./dL (NORMAL)
--- NOTE | 2019-03-28 21:58 | ED Physician Documentation ---
History of Present Illness - Stated complaint Stated Complaint: SOA, VOMITTING, LT LEG PAIN - Chief complaint Chief Complaint: General - History obtained from History obtained from: Patient, Family - Additonal information Additional information: This is a 49-year-old woman who was seen here last night for back pain was found to be dehydrated and have a low potassium so she was given 2 L of fluid and discharged with prescriptions for muscle relaxer and hydrocodone. She is back tonight because she was told to return if she had pain going down into her leg and she is feeling much worse with increased back pain now radiating down the posterior lateral aspect of the left leg. She has had prior back pain in the past in fact has a nerve stimulator that was placed years ago and is been nonfunctional for the past 9 years. That was placed in [place]. She denies any current reinjury to her back and says this is different in the sense that it is "sharp" pain and it swollen. She also complained her that she felt like she was breathing through a coffee filter in her throat and she was short of breath. She is been nauseous and vomited twice today. She felt very lightheaded but did not pass out. She started coughing yesterday and has had chills and had a temperature 2 days ago of 102.1. She complains of decreased urinary output and it feels very "irritated". Urinalysis was negative last night. She also has bilateral chest pain underneath her breasts. 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 She is denies use of alcohol or any recreational drugs. Review of Systems Constitutional: reports: Fever, Fatigue Ears: denies: Ear pain Nose: denies: Rhinorrhea / runny nose, Congestion Throat: denies: Sore throat Cardiac: reports: Chest pain / pressure Respiratory: reports: Dyspnea, Cough GI: reports: Nausea, Vomiting. denies: Abdominal Pain : reports: Dysuria. denies: Incontinent Skin: denies: Rash Musculoskeletal: reports: Back pain Neurologic: reports: Generalized weakness. 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: Hysterectomy - Present Medications Home Medications: Ambulatory Orders Medication Instructions Recorded Confirmed Cyclobenzaprine [Flexeril] 10 mg PO TID PRN #20 tablet 12/11/17 Meloxicam [Mobic] 15 mg PO DAILY PRN #20 tablet 12/11/17 Oxycodone HCl/Acetaminophen 1 - 2 each PO Q6H PRN #14 tablet 12/11/17 [Percocet 5-325 mg Tablet] diazePAM [Valium] 5 - 10 mg PO TID PRN 12/11/17 12/11/17 Hydrocodone/Acetaminophen 1 - 2 each PO Q6H PRN #14 tablet 03/28/19 [Hydrocodon-Acetaminophen 5-325] Methocarbamol [Robaxin-750] 750 mg PO Q6HR PRN #20 tablet 03/28/19 - Allergies Allergies/Adverse Reactions: Allergies Allergy/AdvReac Type Severity Reaction Status Date / Time cyclobenzaprine Allergy Respiratory Verified 03/28/19 20:15 [From Flexeril] iodine Allergy Unknown Verified 03/28/19 20:15 promethazine HCl * Allergy Unknown Verified 03/28/19 20:15 [From Phenergan] Sulfa (Sulfonamide Allergy Unknown Verified 03/28/19 20:15 Antibiotics) - Social History Does the pt smoke?: Yes Smoking Status: Current every day smoker Does the pt drink ETOH?: No Does the pt have substance abuse?: No - Immunizations Immunizations are current?: Yes - POLST Patient has POLST: No PD ED PE NORMAL - Vitals Vital signs reviewed: Yes - General General: Alert and oriented X 3, No acute distress, Well developed/nourished, Other (Well-developed well-nourished 49-year-old woman who looks like she does not feel well. She is laying down on her right side covered up with her jacket.) - HEENT HEENT: Atraumatic, PERRL, Moist mucous membranes, Pharynx benign, Other (No scleral icterus) - Neck Neck: Supple, no meningeal sign, No adenopathy - Cardiac Cardiac: RRR, No murmur, Strong equal pulses - Respiratory Respiratory: No respiratory distress, Clear bilaterally - Abdomen Abdomen: Normal bowel sounds, Soft, Non tender, No organomegaly - Derm Derm: Normal color, Warm and dry, No rash - Extremities Extremities: No deformity, No tenderness to palpate, No edema - Neuro Neuro: Alert and oriented X 3, investor relations coordinator 2-12 intact, No motor deficit, No sensory deficit, Normal speech, Other (Reflexes are 2+ and symmetrical) - Psych Psych: Normal mood, Normal affect Results - Vitals Vitals: Vital Signs - 24 hr 03/28/19 03/28/19 03/28/19 20:15 22:49 23:49 Temperature 37.1 C Heart Rate 97 70 91 Respiratory 15 22 18 Rate Blood Pressure 173/97 H 181/113 H 156/91 H O2 Saturation 100 98 99 03/29/19 01:22 Temperature Heart Rate 91 Respiratory 14 Rate Blood Pressure 150/91 H O2 Saturation 98 Oxygen O2 Source Room air - Labs Labs: Laboratory Tests 03/28/19 03/28/19 03/28/19 21:35 21:35 21:40 WBC 14.7 H RBC 3.80 L Hgb 11.7 L Hct 35.5 L MCV 93.4 MCH 30.8 MCHC 33.0 RDW 14.1 Plt Count 234 MPV 11.4 H Neut # (Auto) 10.9 H Lymph # (Auto) 2.6 [place] # (Auto) 1.0 Eos # (Auto) 0.0 Baso # (Auto) 0.1 Absolute Nucleated RBC 0.00 Nucleated RBC % 0.0 Sodium Potassium Chloride Carbon Dioxide Anion Gap BUN Creatinine Estimated GFR (MDRD) Glucose Calcium Total Bilirubin AST ALT Alkaline Phosphatase Total Protein Albumin Globulin Albumin/Globulin Ratio Lipase Urine Color YELLOW Urine Clarity CLEAR Urine pH 6.0 Ur Specific Gervais 1.015 Urine Protein NEGATIVE Urine Glucose (UA) NEGATIVE Urine Ketones NEGATIVE Urine Occult Blood NEGATIVE Urine Nitrite NEGATIVE Urine Bilirubin NEGATIVE Urine Urobilinogen 0.2 (NORMAL) Ur Leukocyte Esterase NEGATIVE Ur Microscopic Review NOT INDICATED Urine Culture Comments NOT INDICATED Influenza A (Rapid) Negative Influenza B (Rapid) Negative 03/28/19 21:57 WBC RBC Hgb Hct MCV MCH MCHC RDW Plt Count MPV Neut # (Auto) Lymph # (Auto) [place] # (Auto) Eos # (Auto) Baso # (Auto) Absolute Nucleated RBC Nucleated RBC % Sodium 141 Potassium 2.9 L Chloride 109 Carbon Dioxide 25 Anion Gap 7.0 BUN 14 Creatinine 0.9 Estimated GFR (MDRD) 67 L Glucose 101 H Calcium 8.8 Total Bilirubin 0.3 AST 11 ALT 12 Alkaline Phosphatase 45 Total Protein 5.9 L Albumin 3.3 Globulin 2.6 Albumin/Globulin Ratio 1.3 Lipase 37 Urine Color Urine Clarity Urine pH Ur Specific Gervais Urine Protein Urine Glucose (UA) Urine Ketones Urine Occult Blood Urine Nitrite Urine Bilirubin Urine Urobilinogen Ur Leukocyte Esterase Ur Microscopic Review Urine Culture Comments Influenza A (Rapid) Influenza B (Rapid) - Rads (name of study) CXR Radiology: EMP read contemporaneously (Neg acute), See rad report CT abd/pelvis Radiology: See rad report (cystic L pelvic mass) U/S pelvis Radiology: See rad report (cystic L ovarian mass w/o torsion) PD MEDICAL DECISION MAKING - ED course Complexity details: reviewed results, d/w patient ED course: Chest x-ray is negative. White blood cell count is more elevated at 14.7 tonight compared to last night. Influenza is negative. Urinalysis is negative. Patient has been medicated with Toradol and a liter of fluids. 2231: Chemistries are normal.She will be given morphine Leave with the Toradol was still complaining of lower abdominal pain and back pain. And Burak ordered a noncontrast CT of the abdomen pelvis. She is allergic to IV contrast dye and we do not have a IV access larger than a 22 so I am not going to risk IV contrast through that. 0154: The CT scan showed a cystic left pelvic mass. Patient does still have her left ovary. Ultrasound was obtained to rule out torsion and there was flow to the ovary. On reevaluation after more morphine she was still rating her pain at a 7 out of 10 but said that she was feeling better. We discussed results of the ultrasound and the fact that she will need follow-up with VIDEO PRESENTATION OPERATOR and I asked her if she felt her pain was tolerable for discharge at this time and she said that she felt that it was. Just knowing what is potentially causing the pain seems to alleviate it somewhat. She will be discharged for outpatient follow- up. Return if symptoms are worsening. Departure - Departure Disposition: 01 Home, Self Care Clinical Impression: Ovarian mass, left, Pelvic pain, Back pain Condition: Good Instructions: ED Cyst Ovarian Follow-Up: [facility] [Provider Group] FRANKLIN KAISER MD [Provider Admit Priv/Credential] - Comments: May take ibuprofen up to 4 tablets every 8 hours with food. I would also recommend [id number] [id number] for 1-2 doses to help relieve some constipation is noted on the imaging. You have some hydrocodone tablets you can take at home if needed for pain. Call the VIDEO PRESENTATION OPERATOR clinic tomorrow to arrange for follow-up regarding the left ovarian mass. Return if you have fever, you are vomiting and cannot keep anything down, you cannot get the pain under control, you have a weakness in the lower extremities or other problems arise. Discharge Date/Time: 03/29/19 02:11
--- NOTE | 2019-03-28 22:10 | XRAY Report ---
Reason: cough Procedure Date: 03/28/2019 Accession Number: [id number] / [id number] Procedure: XR - Chest 2 View X-Ray CPT Code: 74156 Final Report FULL RESULT: EXAM: CHEST RADIOGRAPHY EXAM DATE: 03/28/2019 09:42 PM. CLINICAL HISTORY: Cough. COMPARISON: CHEST 1 VIEW 03/27/2019 10:21 PM. TECHNIQUE: 2 views. FINDINGS: The mediastinal and cardiac silhouettes are normal. The lungs are clear. No pleural effusion or pneumothorax is seen. The osseous structures are intact. Postcholecystectomy clips are seen in the upper abdomen. IMPRESSION: Clear lungs. RADIA
[2019-03-28 22:29] LABS: ALBUMIN 3.3 g/dL (3.2-5.5); ALBUMIN/GLOBULIN RATIO 1.3 (1.0-2.2); BILIRUBIN,TOTAL 0.3 mg/dL (0.2-1.0); CALCIUM 8.8 mg/dL (8.5-10.3); CREATININE 0.9 mg/dL (0.4-1.0); TOTAL PROTEIN 5.9 g/dL (6.7-8.2)
[2019-03-28] MEDS ORDERED: MORPHINE 2 MG/ML CARPUJECT IVP STA ×2 (22:33→23:58)
[2019-03-28] MEDS ORDERED: ONDANSETRON 4 MG/2 ML VIAL IVP STA (22:33)
--- NOTE | 2019-03-28 23:49 | CT Report ---
Reason: abdominal pain Procedure Date: 03/28/2019 Accession Number: [id number] / [id number] Procedure: CT - Abdomen/Pelvis WO CPT Code: Final Report FULL RESULT: EXAM: CT ABDOMEN AND PELVIS (CT KUB) EXAM DATE: 03/28/2019 11:19 PM CLINICAL HISTORY: Abdominal pain. COMPARISONS: KUB 09/15/2016 12:47 AM. TECHNIQUE: Routine axial helical CT imaging was performed through the abdomen and pelvis without IV contrast. Reconstructions: Coronal and sagittal. In accordance with CT protocol optimization, one or more of the following dose reduction techniques were utilized for this exam: automated exposure control, adjustment of mA and/or KV based on patient size, or use of iterative reconstructive technique. FINDINGS: Lung Bases: Unremarkable. Right Kidney/Ureter: No stones, hydronephrosis, or hydroureter. No perinephric fat stranding. Left Kidney/Ureter: Scattered small stones measuring up to 3 mm. No ureteral stones, hydronephrosis, or hydroureter. No perinephric fat stranding. Other Solid Organs: Noncontrast images of the solid organs are grossly unremarkable. Gallbladder/Bile Ducts: Unremarkable post-cholecystectomy. Peritoneal Cavity: No free fluid, free air or [place] adenopathy. Bowel is grossly unremarkable. Pelvic Organs: Left adnexal cystic mass measures 65 x 44 mm in cross-section on axial image 119 and extends 50 mm in craniocaudal dimension on coronal image 44. Post-hysterectomy with no right adnexal masses seen. The bladder appears within normal limits. Vasculature: Unremarkable. Other: Intrathecal pump noted. IMPRESSION: 1. Small nonobstructing left renal stones. 2. No ureteral stone or evidence of obstructive uropathy. 3. Approximately 6 cm left adnexal cystic mass should be further evaluated by ultrasound as this may reflect an early cystic neoplasm. This can be done on a nonemergent basis unless felt to be cause of acute symptoms (doubtful by CT appearance). 4. Previous cholecystectomy and hysterectomy. RADIA
[2019-03-29 01:22] VITALS: BP 150/91
--- NOTE | 2019-03-29 01:45 | Ultrasound Report ---
Reason: L pelvic pain Procedure Date: 03/29/2019 Accession Number: [id number] / [id number] Procedure: US - Pelvic w/Transvag+Doppler Comp CPT Code: Final Report FULL RESULT: EXAM: PELVIC ULTRASOUND WITH DOPPLERS CLINICAL HISTORY: L pelvic pain. Left adnexal mass on CT. COMPARISON: ABDOMEN/PELVIS W/O 03/28/2019 11:10 PM TECHNIQUE: Realtime transabdominal imaging performed to identify the uterus and adnexa and as an overview of other pelvic structures, followed by transvaginal imaging for better assessment of the endometrium and adnexa, with static image documentation. Color flow imaging and Doppler spectral analysis was performed to evaluate blood flow to the ovaries given pelvic pain and clinical concern for ovarian torsion. FINDINGS: Uterus: Surgically absent. Right Ovary: Surgically absent. Left Ovary: 6.3 x 4.1 x 4.2 cm. Multiple cysts and septations. Arterial and venous blood flow are present. PSV 7.1 cm/sec. RI 0.48. Free Fluid: None. Other: None. IMPRESSION: 1. Uterus and right ovary are surgically absent. 2. Enlarged left ovary measuring 6.3 x 4.1 x 4.2 cm with multiple cysts and septations. Cystic neoplasm not excluded. 3. Arterial and venous blood flow are present to the left ovary. RADIA
== END 2019-03-29 02:11 | disposition home or self-care (01) ==
LOC: ED 20:01
DX: N83.202 Unspecified ovarian cyst, left side (principal); R10.2 Pelvic and perineal pain; M54.9 Dorsalgia, unspecified; R11.2 Nausea with vomiting, unspecified; D72.829 Elevated white blood cell count, unspecified; N20.0 Calculus of kidney; Z90.721 Acquired absence of ovaries, unilateral; Z90.710 Acquired absence of both cervix and uterus; Z90.49 Acquired absence of other specified parts of digestive tract; F17.200 Nicotine dependence, unspecified, uncomplicated; Z91.041 Radiographic dye allergy status
CPT/HCPCS: 36415; 71046; 74176; 76830; 76856; 80053; 81001; 81003; 83690; 85025; 87086; 87275; 87276; 93975; 96361; 96374; 96375; 96376; 99285

== ENCOUNTER 2019-03-30 02:37 | Emergency (ER) | payer MEDICAID ==
--- NOTE | 2019-03-30 03:07 | ED Physician Documentation ---
PD HPI ABD PAIN - Stated complaint Stated Complaint: ABD/BK PX - Chief complaint Chief Complaint: Back Pain - History obtained from History obtained from: Patient - History of Present Illness Timing - duration: Days Timing - details: Still present Pain level now: 8 Quality: Pain - Additional information Additional information: This is a 49-year-old woman who is been here the past 2 days with complaints of left lower abdominal pain and left back pain and pain radiating down the dog or horse racing official ior left leg. I saw her yesterday and she was discharged she has hydrocodone at home that she is using but she is back again stating "I just hurt". She rates pain at an 8 out of 10. She is not been vomiting. She is never been out of pain for at least the past 72 hours and it seems to be getting worse. She has not had fever but she has had hot and cold flashes. She still has the pain in the left buttock and radiating down the back of the left leg. No vomiting. Review of Systems Constitutional: denies: Fever GI: reports: Abdominal Pain. 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 - Present Medications Home Medications: Ambulatory Orders Medication Instructions Recorded Confirmed Cyclobenzaprine [Flexeril] 10 mg PO TID PRN #20 tablet 12/11/17 Meloxicam [Mobic] 15 mg PO DAILY PRN #20 tablet 12/11/17 Oxycodone HCl/Acetaminophen 1 - 2 each PO Q6H PRN #14 tablet 12/11/17 [Percocet 5-325 mg Tablet] diazePAM [Valium] 5 - 10 mg PO TID PRN 12/11/17 12/11/17 Hydrocodone/Acetaminophen 1 - 2 each PO Q6H PRN #14 tablet 03/28/19 [Hydrocodon-Acetaminophen 5-325] Methocarbamol [Robaxin-750] 750 mg PO Q6HR PRN #20 tablet 03/28/19 - Allergies Allergies/Adverse Reactions: Allergies Allergy/AdvReac Type Severity Reaction Status Date / Time cyclobenzaprine Allergy Respiratory Verified 03/30/19 02:50 [From Flexeril] iodine Allergy Unknown Verified 03/30/19 02:50 promethazine HCl * Allergy Unknown Verified 03/30/19 02:50 [From Phenergan] Sulfa (Sulfonamide Allergy Unknown Verified 03/30/19 02:50 Antibiotics) - Social History Does the pt smoke?: Yes Smoking Status: Current every day smoker Does the pt drink ETOH?: No Does the pt have substance abuse?: No - Immunizations Immunizations are current?: Yes - POLST Patient has POLST: No PD ED PE NORMAL - Vitals Vital signs reviewed: Yes - General General: Alert and oriented X 3, No acute distress, Well developed/nourished - HEENT HEENT: Atraumatic, Moist mucous membranes, Other (No scleral icterus) - Cardiac Cardiac: RRR, No murmur, Strong equal pulses - Respiratory Respiratory: No respiratory distress, Clear bilaterally - Abdomen Abdomen: Normal bowel sounds, Other (Pain with palpation with some guarding. It does seem to localize into the left lower quadrant.) - Derm Derm: Normal color, Warm and dry - Neuro Neuro: Alert and oriented X 3, No motor deficit, No sensory deficit, Normal speech, Other (Symmetrical reflexes bilaterally) Results - Vitals Vitals: Vital Signs - 24 hr 03/30/19 03/30/19 02:47 05:13 Temperature 36.8 C 36.8 C Heart Rate 79 67 Respiratory 18 18 Rate Blood Pressure 154/78 H 158/89 H O2 Saturation 99 98 Oxygen O2 Source Room air - Labs Labs: Laboratory Tests 03/30/19 03/30/19 03/30/19 03:40 03:40 03:40 WBC 9.6 RBC 3.79 L Hgb 11.6 L Hct 34.7 L MCV 91.6 MCH 30.6 MCHC 33.4 RDW 14.0 Plt Count 269 MPV 10.9 H Neut # (Auto) 5.9 Lymph # (Auto) 2.7 [place] # (Auto) 0.7 Eos # (Auto) 0.2 Baso # (Auto) 0.1 Absolute Nucleated RBC 0.00 Nucleated RBC % 0.0 Sodium 138 Potassium 2.8 L Chloride 106 Carbon Dioxide 27 Anion Gap 5.0 L BUN 13 Creatinine 0.7 Estimated GFR (MDRD) 90 Glucose 112 H Lactic Acid 0.9 Calcium 8.8 Total Bilirubin 0.3 AST 10 ALT 12 Alkaline Phosphatase 47 Total Protein 5.6 L Albumin 3.0 L Globulin 2.6 Albumin/Globulin Ratio 1.2 Lipase 37 PD MEDICAL DECISION MAKING - ED course Complexity details: d/w patient ED course: We were able to establish IV access but I made located the patient with IM Teresa anyway as we were trying to establish access. Her white blood cell counts actually down today to 9.4 from yesterday. Her potassium is low again at 2.8 she was supplemented orally. The work-up yesterday had shown a cystic left ovarian mass and she has a strong family history for ovarian cancer. She was still having 6 out of 10 pain and so I talked to the hospitalist about admission he wanted me to run it by the practice coordinator to feel she would be most appropriately cared for where there is a gynecologic service. I have a call out to [facility] and care will be turned over to Dr. Prabhakar for final disposition.
[2019-03-30] MEDS ORDERED: HYDROmorphone 1 MG/ML CARPUJECT IM STA (03:29)
[2019-03-30] MEDS ORDERED: SODIUM CHLORIDE 0.9% 1,000 ML IV ONE (03:29)
[2019-03-30] MEDS ORDERED: ONDANSETRON ODT 4 MG TABLET TL STA (03:29)
[2019-03-30 03:51] LABS: BASOPHILS # (AUTO) 0.1 10^3/uL (0.0-0.1); BASOPHILS % (AUTO) 0.7 %; EOSINOPHILS # (AUTO) 0.2 10^3/uL (0.0-0.7); EOSINOPHILS % (AUTO) 1.7 %; HGB - HEMOGLOBIN 11.6 g/dL (12.0-16.0); LYMPHOCYTES # (AUTO) 2.7 10^3/uL (1.5-3.5); LYMPHOCYTES % (AUTO) 28.1 %; MEAN CORPUSCULAR HEMOGLOBIN 30.6 pg (27.0-31.0); MEAN CORPUSCULAR HGB CONC 33.4 g/dL (32.0-36.0); MEAN CORPUSCULAR VOLUME 91.6 fL (81.0-99.0); MEAN PLATELET VOLUME 10.9 fL (7.9-10.8); MONOCYTES # (AUTO) 0.7 10^3/uL (0.0-1.0); MONOCYTES % (AUTO) 7.1 %; NEUTROPHILS # (AUTO) 5.9 10^3/uL (1.5-6.6); PLT - PLATELET COUNT 269 10^3/uL (130-450); RED BLOOD COUNT 3.79 10^6/uL (4.20-5.40); WHITE BLOOD COUNT 9.6 x10^3/uL (4.8-10.8)
[2019-03-30 04:02] LABS: ALBUMIN/GLOBULIN RATIO 1.2 (1.0-2.2); BILIRUBIN,TOTAL 0.3 mg/dL (0.2-1.0); CALCIUM 8.8 mg/dL (8.5-10.3); CREATININE 0.7 mg/dL (0.4-1.0); TOTAL PROTEIN 5.6 g/dL (6.7-8.2)
[2019-03-30] MEDS ORDERED: POTASSIUM CHLORIDE 20 MEQ TABLET PO ONE (05:02)
--- NOTE | 2019-03-30 07:11 | ED Physician Documentation ---
ED Addendum - Addendum Addendum: Care assumed from Dr. Rosas. 49 F with hx chronic back pain, who presents with pain in L back, LLQ abdomen, and radiating down left leg. 3 ED visits in last [address] showed L ovarian mass. Hx hysterectomy and R torsion. US shows blood flow. Presents today with 6/[address] Falcon of LICENSED PHYSICAL THERAPIST ASSISTANT consulted today, they recommend transfer to where geothermal field technician/onc available. She has a strong family hx ovarian cancer. Plan to transfer to geothermal field technician/onc available. Mass is [id number]. I spoke with Dr. Rodriguez of Radiology Physician Assistant/Onc at [facility] who accepted the patient, recommended admission to the hospitalist service. I spoke with of the hospitalist service who also accepted the patient. I spoke with the patient who agreed with the plan for transfer. She still is having discomfort in the left lower quadrant and does not appear to be a good candidate for outpatient therapy since she is failed this in recent days. She required an additional dose of hydromorphone prior to transfer. Departure - Departure Disposition: 02 Transfer Acute Care Hosp Clinical Impression: Ovarian mass, left Condition: Good Discharge Date/Time: 03/30/19 10:05
[2019-03-30] MEDS ORDERED: HYDROmorphone 1 MG/ML CARPUJECT IVP STA (07:43)
[2019-03-30 09:24] VITALS: BP 164/96
[2019-03-30] MEDS ORDERED: HYDROmorphone 2 MG/ML VIAL IVP STA (09:58)
[2019-03-30] MEDS ORDERED: ONDANSETRON 4 MG/2 ML VIAL IVP STA (09:58)
== END 2019-03-30 10:05 | disposition short-term general hospital (02) ==
LOC: ED 02:37
DX: N83.202 Unspecified ovarian cyst, left side (principal); E87.6 Hypokalemia; Z80.41 Family history of malignant neoplasm of ovary; Z90.710 Acquired absence of both cervix and uterus; F17.200 Nicotine dependence, unspecified, uncomplicated
CPT/HCPCS: 36415; 80053; 83605; 83690; 85025; 96361; 96372; 96374; 96376; 99284; 99285; A9270; J1170; Q0162

== ENCOUNTER 2019-03-30 10:06 | Outpatient (CLI) | payer MEDICAID | END 2019-03-30 10:07 | disposition short-term general hospital (02) | LOC: EMS 10:06 | PROVIDERS: ATTEND Surgery | DX: R10.32 Left lower quadrant pain (principal); R11.0 Nausea | CPT/HCPCS: A0425; A0428 ==

== ENCOUNTER 2019-04-07 13:39 | Emergency (ER) | payer MEDICAID ==
[2019-04-07 14:40] LABS: BILIRUBIN,URINE NEGATIVE (NEGATIVE); GLUCOSE, URINE (UA) NEGATIVE (NEGATIVE); KETONES,URINE (UA) NEGATIVE (NEGATIVE); LEUKOCYTE ESTERASE, URINE NEGATIVE (NEGATIVE); NITRITE,URINE NEGATIVE (NEGATIVE); OCCULT BLOOD,URINE NEGATIVE (NEGATIVE); PROTEIN,URINE NEGATIVE (NEGATIVE); UROBILINOGEN,URINE 1 (NORMAL) E.U./dL (NORMAL)
[2019-04-07 14:41] LABS: CLARITY,URINE CLEAR (CLEAR)
[2019-04-07 14:52] LABS: BASOPHILS % (AUTO) 0.5 %; EOSINOPHILS # (AUTO) 0.3 10^3/uL (0.0-0.7); EOSINOPHILS % (AUTO) 4.4 %; HGB - HEMOGLOBIN 12.4 g/dL (12.0-16.0); LYMPHOCYTES # (AUTO) 1.4 10^3/uL (1.5-3.5); LYMPHOCYTES % (AUTO) 18.5 %; MEAN CORPUSCULAR HEMOGLOBIN 30.3 pg (27.0-31.0); MEAN CORPUSCULAR HGB CONC 31.9 g/dL (32.0-36.0); MEAN CORPUSCULAR VOLUME 95.1 fL (81.0-99.0); MEAN PLATELET VOLUME 10.8 fL (7.9-10.8); MONOCYTES # (AUTO) 0.7 10^3/uL (0.0-1.0); MONOCYTES % (AUTO) 8.8 %; NEUTROPHILS % (AUTO) 67.3 %; PLT - PLATELET COUNT 332 10^3/uL (130-450); RED BLOOD COUNT 4.09 10^6/uL (4.20-5.40); RED CELL DISTRIBUTION WIDTH 13.5 % (12.0-15.0); WHITE BLOOD COUNT 7.5 x10^3/uL (4.8-10.8)
[2019-04-07 15:02] LABS: ALBUMIN 3.7 g/dL (3.2-5.5); BILIRUBIN,TOTAL 0.6 mg/dL (0.2-1.0); CALCIUM 9.4 mg/dL (8.5-10.3); CREATININE 0.7 mg/dL (0.4-1.0); TOTAL PROTEIN 7.3 g/dL (6.7-8.2)
--- NOTE | 2019-04-07 16:07 | ED Physician Documentation ---
PD HPI ABD PAIN - Stated complaint Stated Complaint: POST OP COMP - Chief complaint Chief Complaint: Abd Pain - History obtained from History obtained from: Patient, Family - History of Present Illness Timing - onset: How many days ago (2) Timing - duration: Days (2) Timing - details: Gradual onset, Still present Quality: Sharp, Pain Location: All over / everywhere Radiation: Lower back Improved by: Laying still Worsened by: Moving, Breathing, Position, Palpation Associated symptoms: Nausea, Vomiting. No: Constipation Similar symptoms before: Has not had sx before Recently seen: Surgery - Treatment prior to arrival Treatment prior to arrival: 49-year-old female who has had chronic back pain and began to have issues with back pain that was unrelieved over the past several weeks and she was eventually found to have an ovarian cystic mass and was transferred to [facility] in [place] for gynecologic oncology and the mass was removed found to be benign. She was improving postoperatively until yesterday when she began to get increasing pain she is been vomiting overnight and has had a low-grade fever. Review of Systems Constitutional: reports: Fever, Myalgias, Fatigue, Sweats Eyes: denies: Decreased vision Ears: denies: Ear pain Nose: denies: Rhinorrhea / runny nose, Congestion Throat: denies: Sore throat Cardiac: denies: Chest pain / pressure, Palpitations Respiratory: denies: Dyspnea, Cough GI: reports: Abdominal Pain, Nausea, Vomiting : denies: Dysuria, Frequency Skin: denies: Rash Musculoskeletal: denies: Neck pain, Back pain, Extremity pain Neurologic: reports: Generalized weakness. 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 - Present Medications Home Medications: Ambulatory Orders Medication Instructions Recorded Confirmed Cyclobenzaprine [Flexeril] 10 mg PO TID PRN #20 tablet 12/11/17 Meloxicam [Mobic] 15 mg PO DAILY PRN #20 tablet 12/11/17 Oxycodone HCl/Acetaminophen 1 - 2 each PO Q6H PRN #14 tablet 12/11/17 [Percocet 5-325 mg Tablet] diazePAM [Valium] 5 - 10 mg PO TID PRN 12/11/17 12/11/17 Hydrocodone/Acetaminophen 1 - 2 each PO Q6H PRN #14 tablet 03/28/19 [Hydrocodon-Acetaminophen 5-325] Methocarbamol [Robaxin-750] 750 mg PO Q6HR PRN #20 tablet 03/28/19 HYDROmorphone [Dilaudid] 2 - 4 mg PO Q4H PRN #24 tablet 04/07/19 - Allergies Allergies/Adverse Reactions: Allergies Allergy/AdvReac Type Severity Reaction Status Date / Time cyclobenzaprine Allergy Respiratory Verified 03/30/19 02:50 [From Flexeril] iodine Allergy Unknown Verified 03/30/19 02:50 promethazine HCl * Allergy Unknown Verified 03/30/19 02:50 [From Phenergan] Sulfa (Sulfonamide Allergy Unknown Verified 03/30/19 02:50 Antibiotics) - Social History Does the pt smoke?: Yes Smoking Status: Current every day smoker Does the pt drink ETOH?: No Does the pt have substance abuse?: No - Immunizations Immunizations are current?: Yes - POLST Patient has POLST: No PD ED PE NORMAL - Vitals Vital signs reviewed: Yes (hypertensive) - General General: Alert and oriented X 3, Well developed/nourished, Other (electronics lead tone and flat affect belie pain. ) - HEENT HEENT: Atraumatic, PERRL, EOMI - Neck Neck: Supple, no meningeal sign - Cardiac Cardiac: RRR, No murmur - Respiratory Respiratory: No respiratory distress, Clear bilaterally - Abdomen Abdomen: Soft, Other (There is general tenderness and gaurding. She removes my hand from the abdomen. 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, No motor deficit, No sensory deficit, Normal speech Eye Opening: Spontaneous Motor: Obeys Commands Verbal: Oriented GCS Score: 15 - Psych Psych: Normal mood, Normal affect Results - Vitals Vitals: Vital Signs - 24 hr 04/07/19 04/07/19 14:00 17:42 Temperature 36.8 C Heart Rate 88 71 Respiratory 16 16 Rate Blood Pressure 153/86 H 161/85 H O2 Saturation 98 100 Oxygen O2 Source Room air - Labs Labs: Laboratory Tests 04/07/19 04/07/19 04/07/19 14:18 14:43 14:43 WBC 7.5 RBC 4.09 L Hgb 12.4 Hct 38.9 MCV 95.1 MCH 30.3 MCHC 31.9 L RDW 13.5 Plt Count 332 MPV 10.8 Neut # (Auto) 5.0 Lymph # (Auto) 1.4 L [place] # (Auto) 0.7 Eos # (Auto) 0.3 Baso # (Auto) 0.0 Absolute Nucleated RBC 0.00 Nucleated RBC % 0.0 Sodium 139 Potassium 3.9 Chloride 104 Carbon Dioxide 25 Anion Gap 10.0 BUN 15 Creatinine 0.7 Estimated GFR (MDRD) 90 Glucose 93 Calcium 9.4 Total Bilirubin 0.6 AST 22 ALT 38 Alkaline Phosphatase 84 Total Protein 7.3 Albumin 3.7 Globulin 3.6 Albumin/Globulin Ratio 1.0 Lipase 33 Urine Color YELLOW Urine Clarity CLEAR Urine pH 6.0 Ur Specific [place] 1.020 Urine Protein NEGATIVE Urine Glucose (UA) NEGATIVE Urine Ketones NEGATIVE Urine Occult Blood NEGATIVE Urine Nitrite NEGATIVE Urine Bilirubin NEGATIVE Urine Urobilinogen 1 (NORMAL) Ur Leukocyte Esterase NEGATIVE Ur Microscopic Review NOT INDICATED Urine Culture Comments NOT INDICATED - Rads (name of study) CT ab/pel without Radiology: Prelim report reviewed (Impression: Sigmoid colon epiploic appendagitis. Expected postoperative changes in the pelvis status post recent nephrectomy with mesenteric inflammation, small amount of free air, and moderate amount of free fluid. Developing infection cannot be excluded. Nonobstructing left renal calculi.), EMP read indepedently, See rad report PD MEDICAL DECISION MAKING - ED course Complexity details: reviewed old records, reviewed results, re-evaluated patient, considered differential, d/w patient, d/w family, d/w protection consultant (Dr. Keyanna Pulido LINUX DEVELOPER oncology at [facility] will relay diagnosis to Dr. Temple. ) ED course: 49-year-old female who is 5 days status post hysterectomy and oophorectomy with a complex ovarian cyst which was benign and she has developed acute new pain postoperatively. The pain is well localized centrally and infraumbilical. She has a normal white blood cell count and she has significant pain. She has improvement in the pain with IM Dilaudid and TL Zofran. We were not able to establish intravenous access and the patient feels she will build to hydrate orally. Her CT scan shows epiploic appendagitis and she is tender specifically where this is. I suspect this diagnosis is correct and the expectation is for a benign course despite increased pain. The patient does have some pain medication left to use tonight we will write a prescription for some more to last her about 3 days until she is into see her surgeon in follow-up on Tuesday. Departure - Departure Disposition: Home, Self Care Clinical Impression: Epiploic appendagitis Condition: Stable Instructions: ED Post Op Pain Follow-Up: Keyanna Pulido MD [Physician No Access] - Gregorio Barboza MD [Physician No Access] - Prescriptions: HYDROmorphone [Dilaudid] 2 - 4 mg PO Q4H PRN #24 tablet PRN Reason: Pain Comments: Today it looks like you have a condition called epiploic appendagitis which is fat trapped in the omentum causing ischemic pain. Ischemic pain is when the blood supply to the fat is lost and it will off. This is a very painful process. The expectation is that as long as you are able to eat and drink and control your pain this will resolve in 1 to 2 weeks. Follow-up with your surgeon as previously planned. Stay on top of your pain and make certain that you hydrate adequately.
[2019-04-07] MEDS: HYDROmorphone 1 MG/ML CARPUJECT IM STA (17:28)
[2019-04-07] MEDS: ONDANSETRON ODT 4 MG TABLET TL STA ×2 (17:28→18:07)
[2019-04-07] MEDS: SODIUM CHLORIDE 0.9% 1,000 ML IV ONE (17:29)
[2019-04-07] MEDS: HYDROmorphone 1 MG/ML CARPUJECT IVP STA (17:29)
[2019-04-07] MEDS: ONDANSETRON 4 MG/2 ML VIAL IVP STA (17:30)
--- NOTE | 2019-04-07 17:37 | CT Report ---
Reason: post op pain Procedure Date: 04/07/2019 Accession Number: [id number] / [id number] Procedure: CT - Abdomen/Pelvis WO CPT Code: Final Report FULL RESULT: EXAM: CT ABDOMEN AND PELVIS (CT KUB) EXAM DATE: 04/07/2019 04:54 PM. CLINICAL HISTORY: Post op pain. COMPARISONS: ABDOMEN/PELVIS W/O 03/28/2019 11:10 PM. TECHNIQUE: Routine helical CT imaging was performed through the abdomen and pelvis without intravenous contrast. Lack of intravenous contrast can at times limit scan sensitivity, particularly for the detection of intraparenchymal and vascular pathology. Reconstructions: Coronal and sagittal. In accordance with CT protocol optimization, one or more of the following dose reduction techniques were utilized for this exam: automated exposure control, adjustment of mA and/or KV based on patient size, or use of iterative reconstructive technique. FINDINGS: ABDOMEN: Lung Bases: Incompletely included lower lungs are grossly clear. Heart size is within normal limits. No basilar effusions. Liver: Unremarkable. Gallbladder/Bile Ducts: Status post cholecystectomy. Visualized biliary tree is normal caliber. Spleen: Unremarkable. Pancreas: Unremarkable. Adrenal Glands: Unremarkable. Kidneys: Right kidney: No calculi or hydronephrosis. Left kidney: Scattered calculi measuring 1-5 mm. Peritoneum/Mesentery/Bowel: No free fluid or collection. No intestinal obstruction. Epiploic appendagitis at the sigmoid colon (). The appendix is within normal limits. Lymph nodes: No mesenteric, periportal, or retroperitoneal lymphadenopathy. PELVIS: Increased density of the fat and a small amount of free air, consistent with recent postoperative status. Moderate amount of free fluid dependently in the cul-de-sac. Evaluation of density limited by streak artifact from spinal device in the right buttock. The bladder is unremarkable for the degree of distention. Status post hysterectomy and oophorectomy. No pelvic lymphadenopathy. Retroperitoneum: Abdominal aorta is nonaneurysmal. Bones: No suspicious osseous lesions. Small amount of subcutaneous gas and increased density in the anterior pelvic wall consistent with postoperative change. IMPRESSION: Sigmoid colon epiploic appendagitis. Expected postoperative changes in the pelvis status post recent oophorectomy with mesenteric inflammation, small amount of free air, and a moderate amount of free fluid. Developing infection cannot be excluded. Non-obstructing left renal calculi. RADIA
[2019-04-07 17:43] VITALS: BP 161/85
== END 2019-04-07 18:47 | disposition home or self-care (01) ==
LOC: ED 13:39
DX: K63.89 Other specified diseases of intestine (principal); G89.18 Other acute postprocedural pain; M54.9 Dorsalgia, unspecified; G89.29 Other chronic pain; F17.200 Nicotine dependence, unspecified, uncomplicated; Z79.899 Other long term (current) drug therapy; Z90.721 Acquired absence of ovaries, unilateral; Z79.891 Long term (current) use of opiate analgesic; Z90.710 Acquired absence of both cervix and uterus; Z87.42 Personal history of other diseases of the female genital tract
CPT/HCPCS: 36415; 74176; 80053; 81001; 81003; 83690; 85025; 87086; 96372; 99284; 99285

== ENCOUNTER 2023-01-31 01:40 | Emergency (ER) | payer MEDICAID ==
[2023-01-31 01:59] VITALS: O2SAT 96
[2023-01-31] MEDS ORDERED: MAG HYDROX/AL HYDROX/SIMETH 30 ML UDC PO STA (02:17)
[2023-01-31] MEDS ORDERED: NITROGLYCERIN SL 0.4 MG TABLET SL STA (02:17)
[2023-01-31] MEDS ORDERED: GLUCAGON 1 MG/ML VIAL IM STA (02:17)
[2023-01-31] MEDS ORDERED: LIDOCAINE VISCOUS 2% 15 ML ORAL SYRINGE MM STA (02:17)
--- NOTE | 2023-01-31 03:04 | ED Physician Documentation ---
History of Present Illness - Stated complaint Stated Complaint: SOA/THROAT PX - Chief complaint Chief Complaint: General - History obtained from History obtained from: Patient, Family - Additonal information Additional information: The patient comes to the emergency department chief complaint of chest pain and difficulty swallowing after choking episode. She states she was eating chicken and risotto around 2330 when suddenly, she felt as though something got stuck going down. She states that her significant other tried doing the Heimlich maneuver on her, but they could not get the food out. Finally, the patient had a vomiting episode and her significant other states that she vomited a large amount of chicken and risotto up. However, ever since then, she has had a pain in her chest and states that she was not able to get any fluid to go down. She denies any further vomiting. No trouble breathing. She states she just feels as though something is stuck. 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 - Present Medications Home Medications: Ambulatory Orders Medication Instructions Recorded Confirmed Cyclobenzaprine [Flexeril] 10 mg PO TID PRN #20 tablet 12/11/17 Meloxicam [Mobic] 15 mg PO DAILY PRN #20 tablet 12/11/17 Oxycodone HCl/Acetaminophen 1 - 2 each PO Q6H PRN #14 tablet 12/11/17 [Percocet 5-325 mg Tablet] diazePAM [Valium] 5 - 10 mg PO TID PRN 12/11/17 12/11/17 Hydrocodone/Acetaminophen 1 - 2 each PO Q6H PRN #14 tablet 03/28/19 [Hydrocodon-Acetaminophen 5-325] methocarbamoL [Robaxin-750] 750 mg PO Q6HR PRN #20 tablet 03/28/19 HYDROmorphone [Dilaudid] 2 - 4 mg PO Q4H PRN #24 tablet 04/07/19 - Allergies Allergies/Adverse Reactions: Allergies Allergy/AdvReac Type Severity Reaction Status Date / Time cyclobenzaprine Allergy Respiratory Verified 03/30/19 02:50 [From Flexeril] iodine Allergy Unknown Verified 03/30/19 02:50 promethazine HCl * Allergy Unknown Verified 03/30/19 02:50 [From Phenergan] Sulfa (Sulfonamide Allergy Unknown Verified 03/30/19 02:50 Antibiotics) - Social History Does the pt smoke?: Yes Smoking Status: Current every day smoker Does the pt drink ETOH?: No Does the pt have substance abuse?: No - Immunizations Immunizations are current?: Yes - POLST Patient has POLST: No PD ED PE NORMAL - Vitals Vital signs reviewed: Yes - General General: Alert and oriented X 3, No acute distress, Well developed/nourished - HEENT HEENT: Atraumatic, PERRL, EOMI, Moist mucous membranes - Neck Neck: Supple, no meningeal sign - Cardiac Cardiac: RRR, No murmur - Respiratory Respiratory: No respiratory distress, Clear bilaterally - Abdomen Abdomen: Soft, Non tender, Non distended - Derm Derm: Warm and dry - Extremities Extremities: No deformity - Neuro Neuro: Alert and oriented X 3 - Psych Psych: Normal mood, Normal affect Results - Vitals Vitals: Vital Signs - 24 hr 01/31/23 01/31/23 01:53 02:45 Temperature 35.8 C L Heart Rate 85 79 Respiratory 22 20 Rate Blood Pressure 176/126 H 148/107 H O2 Saturation 96 96 Oxygen O2 Source Room air - Rads (name of study) chest XR Relevant Findings:: Final report received, See rad report (nad) PD Medical Decision Making - ED course Complexity details: reviewed results, re-evaluated patient, considered differential, d/w patient, d/w family ED course: The patient was handling her secretions well, and was actually able to drink a little water in the emergency department. She stated she fill as though something was still stuck, so I gave her doses of glucagon nitro, and Maalox. The patient was found to be feeling better on reevaluation. Her chest x-ray was negative. I felt she was stable for discharge home. We have discussed home management of the symptoms, as well as the usual indications for return. Departure - Departure Disposition: 01 Home, Self Care Clinical Impression: Esophageal spasm Food impaction of esophagus Qualifiers: Encounter type: initial encounter Qualified Code(s): T18.128A - Food in esophagus causing other injury, initial encounter; [id number].[id number] - Food entering into or through a natural orifice, initial encounter Condition: Stable Instructions: ED Spasm Esophageal
[2023-01-31 03:26] VITALS: BP 145/100
--- NOTE | 2023-01-31 09:16 | XRAY Report ---
PROCEDURE: Chest 2 View X-Ray INDICATIONS: chest pain TECHNIQUE: 2 views of the chest were acquired. COMPARISON: 03/28/2019 FINDINGS: Surgical changes and devices: None. Lungs and pleura: Mild bilateral pulmonary venous and interstitial prominence. No pleural effusion o r pneumothorax. Mediastinum: Mediastinal contours appear normal. Heart size is enlarged. Bones and chest wall: No suspicious bony lesions. Overlying soft tissues appear unremarkable. IMPRESSION: Mild cardiomegaly. Mild pulmonary vascular and interstitial prominence could indicate mild edema. Reviewed by: Asael Devine MD on 01/31/2023 9:15 AM [facility] Approved by: Asael Devine MD on 01/31/2023 9:15 AM [facility] Station ID: [id number]
== END 2023-01-31 03:17 | disposition home or self-care (01) ==
LOC: ED 01:40
DX: T18.128A Food in esophagus causing other injury, initial encounter (principal); W44.F3XA Food entering into or through a natural orifice, initial encounter; F17.200 Nicotine dependence, unspecified, uncomplicated
CPT/HCPCS: 71046; 96374; 99283; A9270; J1610